=== PATIENT | female | born 1965 | race Caucasian/White ===

== ENCOUNTER 2016-11-04 21:28 | Emergency (ER) | payer OTHER ==
--- NOTE | ~2016-11-04 | ER ---
PATIENT'S NAME: ISMAEL CARBONE [facility] AGE: 51 Y [address] ROOM: [place] [address] LOCATION: [facility] ADMIT DATE: 11/04/2016 ER/Outpatient Report DISCHARGE DATE: FAMILY PHYSICIAN: Shane Ko MD ATTENDING PHYSICIAN: Amadou Marion Admission date and time documented on the medical record. I saw the patient at 2300 hours. CHIEF COMPLAINT: Fever, generalized malaise, myalgias, fatigue, and headache. HISTORY OF PRESENT ILLNESS: This patient is a 51-year-old female, who has had a 24-hour history of fever and chills. No sweats or rigors. She has had generalized fatigue, malaise, myalgias, arthralgias, headache. She also had little bit neck pain, major muscle group pain. No nausea, vomiting, or diarrhea. No urinary frequency, urgency, or dysuria. She has a dry cough, but no chest pain, no real shortness of breath, and has a generalized headache. No eyes, ears, nose, throat pain. No fall or trauma. No lightheadedness, dizziness, syncope, or near syncope. No joint or muscle redness or swelling. No skin eruptions or rash. No history of neuro changes, psych issues, or endocrine problems. HOME MEDICATIONS: See attached medication list. ALLERGIES: NONE. SOCIAL HISTORY: The patient smokes half pack of cigarettes per day. Occasional intake of alcohol. SIGNIFICANT PAST MEDICAL HISTORY: Tobacco abuse, COPD, emphysema, hypertension, heart palpitations. OPERATIONS: Cholecystectomy and . ROS: All systems reviewed by me are negative with exception of those discussed in the history of present illness. PHYSICAL EXAMINATION: VITAL SIGNS: Temperature 102.1, pulse 90, respirations 16, blood pressure PATIENT'S NAME: ISMAEL CARBONE [facility] AGE: 51 Y [address] ROOM: [place] [address] LOCATION: [facility] ADMIT DATE: 11/04/2016 ER/Outpatient Report DISCHARGE DATE: FAMILY PHYSICIAN: Shane Ko MD ATTENDING PHYSICIAN: Amadou Marion 163/77, O2 saturation on room air is 94%. HEENT: Head: Normocephalic. Eyes, Ears, Nose, and Throat: Clear. Mucous membranes are moist. NECK: Negative. SPINE: Negative. LUNGS: Clear. No rales, rhonchi, or wheezes. HEART: Regular. Pulses are palpable. ABDOMEN: Soft, nondistended, and nontender. Good bowel tones. No organomegaly or abnormal masses palpable. EXTREMITIES: Intact. NEUROVASCULAR: Intact. SKIN: Clear. No skin eruptions or rash. LABORATORY DATA AND X-RAYS: Abdominal x-rays show no perforation, obstruction, or acute lung infiltrate. Influenza A and B were both negative. CMS was normal except for a slightly low potassium of 3.5, elevated glucose 106, low calcium of 8.3. Amylase and lipase were normal. CRP was 4.86. White count was 10,500, 81 segs, 8 lymphs, 10 monos, 1 eosinophil. Hemoglobin is 12 with hematocrit 36.6, platelet count is 220,000. Urinalysis was clear. Procalcitonin was normal at less than 0.05. Lactate was 1.0. CT scan of the abdomen and pelvis was negative as read by Radiology. See dictated and transcribed report. We did give the patient IV normal saline fluids here in the emergency department. IMPRESSION: 1. Febrile illness, etiology uncertain, most likely viral. 2. Chronic obstructive pulmonary disease, emphysematous type. 3. Hypertension. PLAN: The patient is dismissed home. Observation. Activity as tolerated. Fluids, good hydration, rest. Diet as tolerated. Continue home medications and care. Follow up with personal physician in 3-4 days if needed. Discussed ensued with the patient concerning my findings and recommendations, she understands. MD KRISTEN GOMEZ/modl /[id number] d: 11/05/16229 t: 11/05/16 1826, OUTPATIENT REPORT
[~2016-11-04 21:28] MED LIST: ASPIRIN LO-DOSE81 MG PO; BENADRYL50 MG PO; CHANTIX1 MG PO; DEPO TESTOS200 MG/ML; LIPITOR40 MG PO; LOPRESSOR25 MG PO; LOPRESSOR50 MG PO; NORCO 5-325 MG1 TAB PO; PREDNISONE10 MG PO
[2016-11-04 23:36] LABS: BASOPHIL % 0.2 %; EOSINOPHIL # 0.1 K/uL (0.0-0.5); EOSINOPHIL % 0.8 %; HEMATOCRIT 36.6 % (33.0-46.0); IMMATURE GRANULOCYTE % 0.3 %; LYMPHOCYTE # 0.8 K/uL (0.8-4.0); LYMPHOCYTE % 7.9 %; MCH 31.3 pg (27.0-34.0); MCHC 32.8 gm/dL (32.0-36.5); MCV 95.3 fl (83.0-98.0); MONOCYTE # 1.1 K/uL (0.0-1.0); MONOCYTE % 10.1 %; MPV 8.7 fl (9.4-12.4); NEUTROPHIL # (ANC) 8.5 K/uL (1.8-7.8); NEUTROPHIL % 80.7 %; NRBC % 0 /100WBC (0-0.00); PLATELET COUNT 220 K/uL (150-450); RBC 3.84 M/uL (3.50-5.50); RDW-CV 12.3 % (11.9-14.6); WBC 10.5 K/uL (4.0-11.0)
[2016-11-04 23:52] LABS: ALBUMIN 3.3 gm/dL (3.5-5.0); ALK PHOS 125 IU/L (33-138); ALT 36 IU/L (12-78); ANION GAP 10.5 (10.0-19.0); AST 20 IU/L (10-40); BLOOD UREA NITROGEN 6 mg/dL (6-24); CALCIUM 8.3 mg/dL (8.5-10.5); CHLORIDE 106 mMol/L (96-110); CO2 26 mMol/L (22-32); CREATININE 0.7 mg/dL (0.5-1.1); ESTIMATED GFR (MDRD EQUATION) > 60; POTASSIUM 3.5 mMol/L (3.7-5.1); SODIUM 139 mMol/L (135-145); TOTAL BILIRUBIN 0.8 mg/dL (0.0-1.5); TOTAL PROTEIN 6.3 g/dL (6.0-8.4)
[2016-11-05 00:14] LABS: BILIRUBIN URINE NEGATIVE (NEGATIVE); BLOOD URINE NEGATIVE /UL (NEGATIVE); COLOR URINE YELLOW (YELLOW); GLUCOSE URINE NEGATIVE (NEGATIVE); KETONE URINE NEGATIVE (NEGATIVE); LEUKOCYTES URINE NEGATIVE /UL (NEGATIVE); NITRITE URINE NEGATIVE (NEGATIVE); PROTEIN URINE NEGATIVE (NEGATIVE); TURBIDITY URINE CLEAR (CLEAR); UROBILINOGEN URINE NORMAL (NORMAL)
== END 2016-11-05 02:17 | disposition disaster alternative care site (69) ==
LOC: GMED 21:28
PROVIDERS: Emergency Medicine
DX: R50.9 Fever, unspecified (principal); J43.9 Emphysema, unspecified; I10 Essential (primary) hypertension; F17.210 Nicotine dependence, cigarettes, uncomplicated; Z90.49 Acquired absence of other specified parts of digestive tract; Z98.890 Other specified postprocedural states; Z79.82 Long term (current) use of aspirin; Z79.899 Other long term (current) drug therapy
CPT/HCPCS: J7030; Q9967